=== PATIENT | female | born 1990 | race Caucasian/White ===

== ENCOUNTER 2018-05-26 08:23 | Inpatient (IN) ==
[2018-05-26] MEDS ORDERED: LACTATED RINGER'S 1,000 ML IV PRN ×3 (10:05→14:36)
[2018-05-26] MEDS ORDERED: OXYTOCIN 30 UNITS/500 ML BAG IV PRN ×3 (10:05→22:50)
--- NOTE | 2018-05-26 10:22 | History & Physical Report ---
Date of Service May 26, 2018 Assessment & Plan (1) 37 weeks gestation of : Mala Arroyo is 27 y/o , GA 37.1 via U/S with EDC of 06/15/2018, B- , GBS unknown. - Pitocin started - will treat GBS since unknown - rhogam per protocol - US at bedside, cephalic presentation History of Present Illness Chief Complaint: Labor Primary Care Provider: [facility] Mala Arroyo is 27 y/o , GA 37.1 via U/S with EDC of 06/15/2018, B-, GBS unknown. Her is complicated by IV methamphetamine, IV heroin, and cigarette use in the first trimester, Hep C infection, LGA 92%, no care until 22 weeks GA, current incarceration. She had GBS swab performed in office yesterday without results. She notes this morning around 6:45am had rupture of membranes with gush of fluid and then constant trickle. She notes she did not start feeling contractions until arrival to hospital. She notes no recent illness. No complaints of headache, shortness of breath, fever, chills, RUQ pain, chest pain. Review of records, there was no indication for C- section because of Hep C history. She notes she feels baby moving. She was seen in office yesterday with cervix check without dilation. Allergies Allergy/AdvReac Type Severity Reaction Status Date / Time Sulfa (Sulfonamide Allergy Unknown ` Verified 05/26/18 08:42 Antibiotics) Home Medications Home Medications Medication Instructions Recorded Confirmed Type acetaminophen [Tylenol] 650 mg PO Q6H PRN 05/26/18 05/26/18 History hydrocortisone 1 applic TOPICAL BID PRN 05/26/18 05/26/18 History vit-iron fum-folic ac 1 tab PO DAILY 05/26/18 05/26/18 History [ Vitamin] Patient History Medical History Asthma, currently dormant childhood asthma Hepatitis C Hx of migraines [place] teeth removed Social History Preferred Language: [place] Beliefs That Will Affect Care: None marital status: Single Current Living Situation: Other Current Living Situation Comment: [facility] Other Information That Helps Us Care for You: No Feels Safe at Home: Yes Safety Concerns: Feels Safe At This Time Smoking Status: Former smoker Hx Alcohol Use: No Hx Substance Use: Yes OB History [employer] History No history of abnormal paps or STDs Review of Systems All systems reviewed & are unremarkable except as noted in HPI & below Physical Exam Vital Signs (Past 24 Hours): Last Vital Signs Pulse 97 H 05/26/18 08:40 Resp 18 05/26/18 09:15 BP 131/81 05/26/18 08:40 Constitutional: WD/WN, vitals as above cooperative Eyes: + anicteric sclerae and EOM intact bilaterally Neck: normal visual inspection and trachea midline Respiratory: normal respiratory effort, lungs clear to auscultation Cardiovascular: Rate/Rhythm: regular rate and regular rhythm Heart Sounds: no murmur Extremities: + pedal edema Gastrointestinal (Abdomen): Percussion/Palpation: abdomen nontender gravid uterus, obese Musculoskeletal: Head/Neck/Chest: normocephalic and head atraumatic Skin: no rashes, warm and dry Neurologic: moves all extremities and awake Psychiatric: A+Ox3, euthymic affect Genitourinary: OB Exam Monitor Tracing: + external FHT monitor used, + external uterine monitor used and + category I cervix check performed by Dr. Courtney, no cervical dilation noted Code Status & VTE Plan Code Status Full Code Monitoring External Monitor Baseline 145 with moderate variability, accels present, no decels Tocodynamometer mild irregular contractions
[2018-05-26 10:32] LABS: Hematocrit (blood only) 34.8 % (37-47); Hemoglobin 12.1 g/dL (12.0-16.0); Mean Corpuscular Volume 89.5 fL (80-100); Mean Platelet Volume 10.9 fL (7.4-10.4); Platelet Count 198 K/uL (130-400); RDW Coefficient of Variation 14.1 % (11.5-14.5); RDW Standard Deviation 45.9 fL (36.4-46.3); Red Blood Count 3.89 M/uL (4.2-5.4); White Blood Count 12.33 K/uL (4.8-10.8)
[2018-05-26 10:37] LABS: Mean Corpuscular Hgb Conc 34.8 g/dL (32-36)
--- NOTE | 2018-05-26 10:40 | Obstetrical Progress Note ---
Date of Service May 26, 2018 Assessment & Plan (1) Normal intrauterine in third trimester: 27yo G1 at 40.5 weeks GA. Labor - Cat 1 - Labor Progressing. Continue pitocin. - Vitals: wnl - Pain controlled with epidural Subjective Patient comfortable Physical Exam Vital Signs (Past 24 Hours): Last Vital Signs Temp 36.7 C 05/26/18 09:15 Pulse 97 H 05/26/18 08:40 Resp 18 05/26/18 09:15 BP 131/81 05/26/18 08:40 Genitourinary: Manual OB Exam: + cervical dilation 9 cm, + cervical effacement 100% and + station + 1 OB Exam Monitor Tracing: + category I
[2018-05-26] MEDS: LACTATED RINGER'S 1,000 ML IV SCH ×3 (10:47→19:32)
[2018-05-26] MEDS ORDERED: PENICILLIN G POTASSIUM 6 MU in DEXTROSE 5% 250 ML IV ONE (11:00)
[2018-05-26] MEDS ORDERED: fentaNYL 2MCG/ML ROPIV 1.25MG/ML 100 ML BAG EPI ONE (14:25)
[2018-05-26] MEDS ORDERED: fentaNYL citrate 100 MCG/2 ML VIAL ONE (14:26)
[2018-05-26] MEDS ORDERED: BUPIVACAINE 0.25% 30 ML VIAL ONE (14:27)
[2018-05-26] MEDS ORDERED: ePHEDrine sulfate 50 MG/ML AMP ONE (14:27)
[2018-05-26] MEDS ORDERED: NALOXONE HCL 1 MG in SODIUM CHLORIDE 0.9% 1000ML 1,000 ML IV PRN (14:36)
[2018-05-26] MEDS ORDERED: DiphenhydrAMINE HCL 50 MG/ML VIAL IV PRN (14:36)
[2018-05-26] MEDS ORDERED: fentaNYL 2MCG/ML ROPIV 1.25MG/ML 100 ML BAG EPI PRN (14:36)
[2018-05-26] MEDS ORDERED: NALBUPHINE HCL INJ 10 MG/ML AMP IV PRN (14:36)
[2018-05-26] MEDS ORDERED: NALOXONE HCL 0.4 MG/1 ML VIAL/CARP IV PRN (14:36)
[2018-05-26] MEDS ORDERED: ePHEDrine sulfate 50 MG/ML AMP IV PRN (14:36)
--- NOTE | 2018-05-26 14:36 | Anesthesiology Consultation ---
Date of Service May 26, 2018 Assessment & Plan Chart Review Chart Review: Acceptable Risk for Labor Epidural Consults Requested none History Height/Weight Height: 5 ft 5 in Weight: 122.47 kg Allergies Allergy/AdvReac Type Severity Reaction Status Date / Time Sulfa (Sulfonamide Allergy Unknown ` Verified 05/26/18 08:42 Antibiotics) Medications Home Medications Medication Instructions Recorded Confirmed Last Taken acetaminophen [Tylenol] 650 mg PO Q6H PRN 05/26/18 05/26/18 05/25/18 20:00 hydrocortisone 1 applic TOPICAL BID PRN 05/26/18 05/26/18 05/25/18 20:00 vit-iron fum-folic ac 1 tab PO DAILY 05/26/18 05/26/18 1 Day Ago [ Vitamin] ~05/25/18 Active Medications Generic Name Dose Route Start Last Admin Trade Name Freq PRN Reason Stop Dose Admin Lactated Ringer's 1,000 mls @ 125 mls/hr 05/26/18 10:15 05/26/18 14:03 Lr IV 05/28/18 10:14 999 mls/hr .Q8H ASA Infusion Oxytocin 30 units in 500 mls @ 14 mls/hr 05/26/18 10:08 05/26/18 13:55 Pitocin IV 05/28/18 10:07 0.84 units/hr .Q24H PRN 14 mls/hr Labor Induction/Augmentation Titration Protocol 0.84 UNITS/HR Ropivacaine 100 ml 05/26/18 14:36 05/26/18 15:03 Epidural (L&D) EPI 05/27/18 14:35 10 ml PRN PRN Administration Pain R/T Labor Protocol Past Medical History Medical History Asthma, currently dormant childhood asthma Hepatitis C Hx of migraines [place] teeth removed Social History Smoking Status: Former smoker Hx Alcohol Use: No Hx Substance Use: Yes substance use type: amphetamines Last Used Substance Other:: 12/01 Physical Exam Vital Signs Last Vital Signs Temp 36.8 C 05/26/18 13:59 Pulse 88 05/26/18 15:03 Resp 20 05/26/18 13:59 BP 124/63 05/26/18 15:03 Pulse Ox 99 05/26/18 15:02 Testing Laboratory Results 05/26/18 10:17
[2018-05-26] MEDS: PENICILLIN G POTASSIUM 3 MU in DEXTROSE 5% 100 ML IV PRN ×2 (16:15→20:30)
[2018-05-26] MEDS ORDERED: SUPERCREAM 0.870% 15 GM JAR EXT PRN (22:50)
[2018-05-26] MEDS ORDERED: DIPHTHERIA/TETANUS/PERTUSSIS 0.5 ML SYR/VIAL IM ONE (22:50)
[2018-05-26] MEDS ORDERED: HYDROCORTISONE ACETATE 25 MG SUPP PR PRN (22:50)
[2018-05-26] MEDS ORDERED: BISACODYL 10 MG SUPP PR PRN (22:50)
[2018-05-26] MEDS ORDERED: BENZOCAINE 20% AER SPR 82.5 GM CAN EXT PRN (22:50)
[2018-05-27] MEDS: IBUPROFEN 600 MG TAB PO PRN ×5 (00:25→20:14)
[2018-05-27] MEDS: ACETAMINOPHEN 325 MG TAB PO PRN ×2 (05:33→23:56)
[2018-05-27 07:23] LABS: Hematocrit (blood only) 27.7 % (37-47); Hemoglobin 9.5 g/dL (12.0-16.0); Mean Corpuscular Hgb Conc 34.3 g/dL (32-36); Mean Corpuscular Volume 89.1 fL (80-100); Mean Platelet Volume 10.6 fL (7.4-10.4); Platelet Count 185 K/uL (130-400); RDW Coefficient of Variation 14.4 % (11.5-14.5); RDW Standard Deviation 46.8 fL (36.4-46.3); Red Blood Count 3.11 M/uL (4.2-5.4); White Blood Count 17.35 K/uL (4.8-10.8)
--- NOTE | 2018-05-27 07:30 | Obstetrical Progress Note ---
Date of Service May 27, 2018 Assessment & Plan (1) Spontaneous vaginal delivery: Mala Arroyo is 27 y/o , GA 37.1 via U/S with EDC of 06/15/2018, B- , GBS unknown. - treated GBS since unknown as being positive - rhogam per protocol - PPD #1, continue routine post- care, encourage , encourage ambulation (2) 37 weeks gestation of : Subjective Ambulation: ambulating normally Voiding: no voiding problems Passing Gas:: Yes Diet Tolerance:: regular diet Lochia:: Small Feeding Type:: breast feeding Mala states she is doing well today, no acute events overnight. She denies fever, chills, chest pains, shortness of breath, nausea, vomiting. Physical Exam Vital Signs (Past 24 Hours) Last Vital Signs Temp 36.5 C 05/27/18 03:40 Pulse 90 05/27/18 03:40 Resp 16 05/27/18 03:40 BP 121/71 05/27/18 03:40 Pulse Ox 95 05/27/18 03:40 Constitutional WD/WN, vitals as above cooperative Eyes + anicteric sclerae and EOM intact bilaterally Neck normal visual inspection and trachea midline Respiratory normal respiratory effort, lungs clear to auscultation Cardiovascular Rate/Rhythm: regular rate and regular rhythm Heart Sounds: no murmur Extremities: + pedal edema Gastrointestinal (Abdomen) Percussion/Palpation: abdomen nontender uterine fundus is firm, non-tender, 2cm inferior to umbilicus Musculoskeletal Head/Neck/Chest: normocephalic and head atraumatic Skin no rashes, warm and dry Neurologic moves all extremities and awake Psychiatric A+Ox3, euthymic affect Results & Data Laboratory Results Laboratory Results - last 24 hr 05/26/18 05/26/18 05/27/18 10:17 11:20 07:11 WBC 12.33 H 17.35 H RBC 3.89 L 3.11 L Hgb 12.1 9.5 L Hct 34.8 L 27.7 L MCV 89.5 89.1 MCH 31.1 30.5 MCHC 34.8 34.3 RDW Std Deviation 45.9 46.8 H RDW Coeff of Gabby 14.1 14.4 Plt Count 198 185 MPV 10.9 H 10.6 H Nasal Screen MRSA (PCR) Negative Medications Administered Acetaminophen (Tylenol) 650 mg PO Q6H PRN PRN Reason: Pain/DANIELSON/Fever Stop: 06/25/18 22:49 Last Admin: 05/27/18 05:33 Dose: 650 mg Documented by: [id number] Ibuprofen (Motrin) 600 mg PO Q4H PRN PRN Reason: Pain/DANIELSON/Cramping/Fever Stop: 06/25/18 22:49 Last Admin: 05/27/18 03:36 Dose: 600 mg Documented by: [id number] Admin: 05/27/18 00:25 Dose: 600 mg Documented by: [id number] Ropivacaine (Epidural (L&D)) 100 ml EPI PRN PRN; Protocol PRN Reason: Pain R/T Labor Stop: 05/27/18 14:35 Last Admin: 05/26/18 15:03 Dose: 10 ml Documented by: [id number] Cosigned by: [id number]
[2018-05-27] MEDS: PRENATAL VITAMIN 1 TAB PO SCH (08:10)
[2018-05-27] MEDS: DOCUSATE SODIUM 100 MG CAP PO SCH ×2 (08:11→20:14)
--- NOTE | 2018-05-27 10:03 | Delivery Summary ---
DATE OF OPERATION: 05/26/2018 SURGEON: Carmine Courtney MD PREOPERATIVE DIAGNOSES: 1. Single intrauterine at 37 weeks 1 day gestational age. 2. Hepatitis C carrier. 3. Premature rupture of membranes. 4. Large for gestational age fetus. POSTOPERATIVE DIAGNOSES: 1. Single intrauterine at 37 weeks 1 day gestational age. 2. Hepatitis C carrier. 3. Premature rupture of membranes. 4. Large for gestational age fetus. 5. Delivered. ESTIMATED BLOOD LOSS: 300 mL. DRAINS: Straight cath at the end of the case for 300 mL of urine. COMPLICATIONS: None. FLUIDS: Continuous lactated ringer. FINDINGS: There was noted to be a viable with Apgars of 8 and 9 at 1 and 5 minutes respectively and weight pending. INDICATIONS: Ms. Arroyo presented to L and D with leakage of fluid. She was ruled in for gross rupture of membranes. She was only mildly paul at that time and was noted to have the cervix that was 1 cm dilated, 25% effaced, -4 station. The patient was cephalic by bedside ultrasound at that time and was started on oxytocin per regular protocol. The patient progressed in labor following a good labor curve and progressed to complete-complete, +2, at which time we began to push. The patient pushed for just under 2 hours to achieve delivery. DESCRIPTION OF PROCEDURE: The patient progressed to 10 cm dilated, 100% effaced, +2 station, pushed over intact perineum with epidural anesthesia and delivered a viable female with Apgars of 8 and 9 at 1 and 5 minutes respectively and weight pending. Head of the delivered in FRANCHESCA position and rest into right transverse. No nuchal was noted. The body, shoulders quickly followed and the was noted to be vigorous soon after delivery. A 1-minute delayed cord clamping was initiated after which the cord was double clamped and cut. Cord blood was then obtained. Attention was then turned to delivery of the placenta which was delivered intact with 3-vessel cord with gentle cord traction. Attention was then turned to the perineum, cervix, and vagina for inspection. There was noted to be a first-degree perineal laceration which was bleeding and was repaired with 3-0 Vicryl in a continuous running locked stitch. Needle, sponge and instrument counts were correct at the completion of the case. I attest to the content of the Intraoperative Record and any orders documented therein. Any exception s are noted below.
--- NOTE | 2018-05-27 10:17 | Anesthesia Procedure Note ---
Date of Service May 27, 2018 Anesthesia Post Epidural Note Vital Signs Vital Signs: Temp Pulse Resp BP Pulse Ox 36.6 C 86 20 120/67 97 05/27/18 08:15 05/27/18 08:15 05/27/18 08:15 05/27/18 08:15 05/27/18 08:15 Pain Intensity Bilateral Abdomen: Pain Intensity: 7 Bilateral Leg: Pain Intensity: 7 Notes Mental Status: alert / awake / arousable Patient Amnestic to Procedure: Yes Nausea / Vomiting: adequately controlled Pain: adequately controlled Airway Patency, RR, SpO2: stable & adequate BP & HR: stable & adequate Hydration State: stable & adequate Neuraxial Anesthesia: was administered and sensory block resolved Anesthetic Complications: no major complications apparent and Pt Satisfied with anesthetic care Epidural: Removed without complications and With tip intact
[2018-05-27] MEDS ORDERED: BISACODYL 5 MG TABEC PO SCH (20:00)
[2018-05-28] MEDS: PRENATAL VITAMIN 1 TAB PO SCH (07:19)
[2018-05-28] MEDS: IBUPROFEN 600 MG TAB PO PRN (07:19)
--- NOTE | 2018-05-28 08:27 | Obstetrical Progress Note ---
Date of Service May 28, 2018 Assessment & Plan (1) 37 weeks gestation of : (2) Spontaneous vaginal delivery: pt encouraged to ambulate more, explained time and ambulation and adequate hydration will help her edema resolve which will be over weeks. if needed, can use walker. instructions reviewed. F/u 6 wks pp check. requests a new breast pump script. she also requests scripts re: meds [facility] in [facility]. Day #:: 2 Subjective Ambulation: ambulating normally Voiding: no voiding problems Diet Tolerance:: regular diet Lochia:: Small Feeding Type:: breast feeding lying in bed saying she has leg pain with walking and swelling. when she ambulates she gets shooting pain through pelvis to chest. only with walking. bleeding decreased. breast pumping. will be discharged today. Physical Exam Vital Signs (Past 24 Hours) Last Vital Signs Temp 36.5 C 05/28/18 00:20 Pulse 98 H 05/28/18 00:20 Resp 18 05/28/18 00:20 BP 114/64 05/28/18 00:20 Pulse Ox 98 05/28/18 00:20 Constitutional WD/WN, vitals as above Respiratory normal respiratory effort, lungs clear to auscultation Cardiovascular Rate/Rhythm: regular rate and regular rhythm Gastrointestinal (Abdomen) Inspection/Auscultation: abdomen normal to inspection Percussion/Palpation: abdomen soft fundus firm 2 cm below umbilicus Musculoskeletal LE edema +2, nt calves. Psychiatric A+Ox3, euthymic affect
== END 2018-05-28 13:35 | disposition home or self-care (01) | DRG 806 ==
LOC: OPB 08:23 → 4S1 08:37 → 4S2 05-27 01:13
DX: B19.20 Unspecified viral hepatitis C without hepatic coma; O70.0 First degree perineal laceration during delivery; F11.20 Opioid dependence, uncomplicated; O42.92 Full-term premature rupture of membranes, unspecified as to length of time between rupture and onset of labor; O99.324 Drug use complicating childbirth; Z37.0 Single live birth; F17.210 Nicotine dependence, cigarettes, uncomplicated; O98.42 Viral hepatitis complicating childbirth; Z3A.37 37 weeks gestation of pregnancy; O99.334 Smoking (tobacco) complicating childbirth